=== PATIENT | female | born 1960 | race Caucasian/White ===

== ENCOUNTER → 2024-09-27 | Outpatient (CLI) | payer BC, SELFPAY ==
[2024-09-27 12:41] LABS: Influenza A Ag Negative; Influenza B Ag Negative
== END | disposition home or self-care (01) ==
LOC: SLDO 10:38
PROVIDERS: PCP Specialist; Referring Provider Specialist; Visit Provider Specialist
DX: Z20.828 Contact with and (suspected) exposure to other viral communicable diseases (principal)
CPT/HCPCS: 87502

== ENCOUNTER → 2025-03-16 | Outpatient (CLI) | payer BC, SELFPAY ==
[2025-03-16 10:50] LABS: Collection Type, Urine Clean Catch
[2025-03-16 12:23] LABS: Bacteria,Urine Rare; Bilirubin,Urine Negative (Negative); Blood,Urine 1+ (Negative); Color,Urine Yellow (Lt Yel-Yel); Glucose, Urine Negative (Negative); Ketones,Urine Negative (Negative); Leukocyte Esterase,Urine Positive (Negative); Nitrite,Urine Positive (Negative); PH,Urine 6.0 (5.0-7.0); Protein,Urine 1+ (Neg - Trace); RBC,Urine 24 /hpf (0-3); Specific Gravity,Urine 1.015 (1.001-1.035); Squamous Epithelial Cell,Urine 1 /hpf (0-5); Urobilinogen,Urine Negative mg/dL (0.0-1.0); WBC,Urine 5 /hpf (0-5)
[2025-03-16 12:49] LABS: Clarity,Urine Cloudy (Clear/Hazy)
== END | disposition home or self-care (01) ==
PROVIDERS: PCP Specialist; Referring Provider Specialist; Visit Provider Specialist
DX: R30.0 Dysuria (principal)
CPT/HCPCS: 81001; 87077; 87086; 87186

== ENCOUNTER 2025-03-23 07:30 | Day surgery (SDC) | payer BC, SELFPAY ==
[2025-03-22 11:42] VITALS: BMI 34.7
[2025-03-23] VITALS (10 sets, daily range): BP systolic 132–189; BP diastolic 66–113; PULSE 67–99; RESP 14–20; TEMP 36.6; O2SAT 95–100
[2025-03-23] MEDS: BENZOCAINE 20% (Hurricaine) SPRAY 1 DOSE TOP (09:24)
[2025-03-23] MEDS: SODIUM CHLORIDE 0.9% 500 ML 500 ML 20 ML IV (09:24)
[2025-03-23] MEDS: MIDAZOLAM INJ 1 MG/ML VIAL 2 ML (ASD USE ONLY) 2 MG IVP (09:27)
[2025-03-23] MEDS: fentaNYL CIT INJ 50 mCg/ML AMP 2ML (ASD USE ONLY) IVP (09:27)
== END 2025-03-23 10:30 | disposition home or self-care (01) ==
PROVIDERS: PCP Specialist; Referring Provider Specialist; Visit Provider Specialist
PROC: (CPT 43239; principal; 2025-03-23 10:45)
DX: R10.13 Epigastric pain (principal); K20.90 Esophagitis, unspecified without bleeding; K31.7 Polyp of stomach and duodenum; L30.8 Other specified dermatitis; K52.9 Noninfective gastroenteritis and colitis, unspecified; K29.50 Unspecified chronic gastritis without bleeding
CPT/HCPCS: 43239; J1200; J2250; J3010; J7999; A9270